=== PATIENT | male | born 1965 ===

== ENCOUNTER 2018-10-26 15:13 | Emergency (ER) | payer MEDICAID ==
[2018-10-26 15:33] VITALS: BP 151/87; RESP 18; TEMP 97.7; O2SAT 98
[2018-10-26] MEDS ORDERED: Acetaminophen 160 mg/5 ml UD ONE (16:23)
--- NOTE | 2018-10-26 16:26 | ED PDOC ---
HPI: Back Time Seen by Provider: 10/26/18 15:54 Chief Complaint (Nursing): Dizziness/Lightheaded Chief Complaint (Provider): Back pain, dizziness History Per: Patient History/Exam Limitations: no limitations Onset/Duration Of Symptoms: Intermittent Episodes Associated Symptoms: None Additional Complaint(s): 53yo male, otherwise well, comes to ER reporting back pain and dizziness. Patient states he has been having back pain intermittently for the past month, and states it started after he slept on the floor; he states over time the pain has been getting mildly better. 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 Patient states yesterday he was feeling lightheaded as well and today while fixing a fan, he reached up and the lightheadedness worsened. Currently, he states he does not feel lightheaded. Patient otherwise denies any weakness, numbness, urine/fecal retention or incontinence, chest pain, shortness of breath, or fevers. No additional complaints. PMD: Dr. Cooley Past Medical History Reviewed: Historical Data, Nursing Documentation, Vital Signs Vital Signs: Last Vital Signs Temp 97.7 F 10/26/18 15:30 Pulse 66 10/26/18 15:30 Resp 18 10/26/18 15:30 BP 151/87 H 10/26/18 15:30 Pulse Ox 98 10/26/18 15:30 - Medical History PMH: No Chronic Diseases - Surgical History Surgical History: No Surg Hx - Family History Family History: States: Diabetes, Other Other Family History: skin cancer - Home Medications Home Medications: Ambulatory Orders Medication Instructions Recorded Ibuprofen [Motrin Tab] 600 mg PO Q8 PRN #30 tab 10/26/18 Meclizine HCl 25 mg PO Q6 PRN #30 tablet 10/26/18 - Allergies Allergies/Adverse Reactions: Allergies Allergy/AdvReac Type Severity Reaction Status Date / Time No Known Allergies Allergy Verified 10/26/18 15:28 Review of Systems ROS Statement: Except As Marked, All Systems Reviewed And Found Negative (per HPI) Constitutional: Negative for: Fever, Chills Cardiovascular: Positive for: Light Headedness (not currently). Negative for: Chest Pain Respiratory: Negative for: Shortness of Breath Genitourinary Male: Negative for: Incontinence, Other (urine/fecal retention) Musculoskeletal: Positive for: Back Pain Neurological: Negative for: Weakness, Numbness Physical Exam - Physical Exam Appears: Positive for: Non-toxic, No Acute Distress Head Exam: Positive for: ATRAUMATIC, NORMAL INSPECTION, NORMOCEPHALIC Skin: Positive for: Warm, Dry Eye Exam: Positive for: Normal appearance, EOMI, PERRL. Negative for: Nystagmus ENT: Negative for: Pharyngeal Erythema, Tonsillar Exudate Neck: Positive for: Painless ROM, Supple Cardiovascular/Chest: Positive for: Regular Rate, Rhythm. Negative for: Murmur Respiratory: Positive for: Normal Breath Sounds. Negative for: Respiratory Distress Back: Positive for: Normal Inspection, Other ((-) paralumbar tenderness; (-) straight leg raise bilaterally) Extremity: Positive for: Normal ROM, Other (5/5 strength bilateral lower extremity; light touch intact). Negative for: Pedal Edema, Calf Tenderness Neurologic/Psych: Positive for: Alert, manager quantitative II-XII (normal), Oriented. Negative for: Motor/Sensory Deficits - ECG ECG: Positive for: Interpreted By Me, Viewed By Me ECG Rhythm: Positive for: Normal QRS, Normal ST Segment, Sinus Rhythm Rate: 61 O2 Sat by Pulse Oximetry: 98 (RA) Pulse Ox Interpretation: Normal Medical Decision Making Medical Decision Making: Impression: Back pain, dizziness Plan: -- XR lumbar spine -- EKG -- UDS LS spine no acute findings Scribe Attestation: Documented by Radha Coronado acting as a scribe for Sherin Rush MD. Provider Attestation: All medical record entries made by the Scribe were at my direction and personally dictated by me. I have reviewed the chart and agree that the record accurately reflects my personal performance of the history, physical exam, medical decision making, and the department course for this patient. I have also personally directed, reviewed, and agree with the discharge instructions and disposition. Disposition - Clinical Impression Clinical Impression: Low back pain, Dizziness - Disposition Referrals: Aryan Cooley MD [Family Provider] - (FOLLOW UP WITH YOUR DOCTOR IN 1-2 DAYS FOR REEVALUATION) Disposition: Routine/Home Disposition Time: 17:46 Condition: STABLE Prescriptions: Ibuprofen [Motrin Tab] 600 mg PO Q8 PRN #30 tab PRN Reason: Pain, Moderate (4-7) Meclizine HCl 25 mg PO Q6 PRN #30 tablet PRN Reason: Dizziness Instructions: Low Back Pain (DC), Vertigo (a Type of Dizziness) (DC) Forms: [employer] (Gabonese)
[2018-10-26 16:42] VITALS: PULSE 61
--- NOTE | 2018-10-26 17:11 | RAD ---
Date of service: 10/26/2018 PROCEDURE: Radiographs of the Lumbar Spine. HISTORY: back pain COMPARISON: No prior. FINDINGS: BONES: Normal alignment. No listhesis. No fracture. DISC SPACES: L5-S1 disc space narrowing. OTHER FINDINGS: None. IMPRESSION: Focal L5-S1 degenerative changes.
[2018-10-26 17:29] LABS: BARBITURATES, UR NEGATIVE (NEGATIVE); BENZODIAZEPINES, UR NEGATIVE (NEGATIVE); OPIATES, UR NEGATIVE (NEGATIVE); PHENCYCLIDINE, UR NEGATIVE (NEGATIVE)
--- NOTE | 2018-10-27 12:22 | CARD ---
APPROVED REPORT Date of service: 10/26/2018 EKG Measurement Heart [id number] <Conclusion> Normal sinus rhythm Normal ECG
== END 2018-10-26 18:10 | disposition home or self-care (01) ==
LOC: H.ER 15:13
DX: M54.5 Low back pain (principal); R42 Dizziness and giddiness
CPT/HCPCS: 72100; 82948; 93005; 99284; G0480